=== PATIENT | male | born 1975 | race Caucasian/White ===

== ENCOUNTER 2020-08-27 08:33 | Outpatient (CLI) | payer OTHER, SELFPAY ==
--- NOTE | ~2020-08-27 | US_ITS ---
EXAMINATION: US abdomen complete EXAM DATE: 08/27/2020 09:18 INDICATION: R74.8 - Abnormal liver enzymes. TECHNIQUE: Multiple grayscale and Doppler images of the complete abdomen were obtained (by a technolo gist who performed the scan) and subsequently reviewed. Comparison is made to prior examination from 05/09/2019. FINDINGS: The abdominal aorta is normal in caliber. Visualized portion IVC is patent. The pancreatic head a nd body are normal in appearance. The pancreatic tail is not visualized. There is echogenic liver parenchyma, hepatic steatosis. There are no focal liver lesions identified. There is no evidence of intrahepatic biliary duct dilation. Portal venous flow was seen in the he patopedal, normal direction and has normal Doppler waveform. Common bile duct measures 5 mm, which is normal. The gallbladder fossa is unremarkable. Right kidney: There is normal contour and echogenicity. It measures 11.0 x 5.2 x 4.3 centimeters. There are no focal renal lesions identified. There is no hydronephrosis. Left kidney: There is normal contour and echogenicity. It measures 11.1 x 5.0 x 5.9 centimeters. T here are no focal renal lesions identified. There is no hydronephrosis. The spleen measures 11.3 centimeters and is morphologically normal. IMPRESSION: 1. Hepatic steatosis. Reviewed, dictated and finalized at location A. TIATOR IMPRESSION: 1. Hepatic steatosis.
== END 2020-08-27 08:34 | disposition home or self-care (01) ==
PROVIDERS: Family Provider Family Medicine; PCP Family Medicine; Visit Provider Physician Assistant Medical
DX: R74.8 Abnormal levels of other serum enzymes (principal); K76.0 Fatty (change of) liver, not elsewhere classified
CPT/HCPCS: 76700

== ENCOUNTER → 2022-03-01 11:43 | Outpatient (CLI) | payer OTHER, SELFPAY ==
--- NOTE | ~2022-03-01 | US_ITS ---
US abdomen complete EXAMINATION: US Abdomen Complete INDICATION: Abdomen pain. PROCEDURE: Realtime High Resolution abdomen ultrasound. COMPARISON: No prior studies for comparison FINDINGS: Gallbladder is surgically absent. Common bile duct measures 4 mm. Liver echotexture is increased, consistent with fatty infiltration.. Pancreas within normal limits. Pancreatic tail is obscured by bowel gas. Spleen is unremarkeable. Renal echotexture is within norm al limits bilaterally without hydronephrosis, contour deforming mass or renal stone. Right kidney bobby sures cm. Left kidney measures cm. Visualized aspects of the aorta and IVC are within normal limits. Portal vein is patent. No sonograph ic Noriega's sign indicated by the technologist. IMPRESSION: 1: Hepatic steatosis. Reviewed, dictated and finalized at location A. IMPRESSION: 1: Hepatic steatosis.
== END ==
PROVIDERS: PCP Family Medicine; Visit Provider Nurse Practitioner Family
DX: R10.12 Left upper quadrant pain (principal); K76.0 Fatty (change of) liver, not elsewhere classified
CPT/HCPCS: 76700

== ENCOUNTER 2022-03-30 09:00 | Outpatient (NON) | payer OTHER, SELFPAY | END 2022-03-30 09:01 | disposition home or self-care (01) | PROVIDERS: PCP Family Medicine; Visit Provider Internal Medicine Gastroenterology | DX: R10.9 Unspecified abdominal pain (principal) | CPT/HCPCS: 88305; 88342 ==

== ENCOUNTER 2022-03-30 12:20 | Day surgery (SDC) | payer OTHER, SELFPAY ==
[2022-03-23 08:47] VITALS: BMI 32.5
[2022-03-23 09:35] VITALS: BMI 71.6
--- NOTE | 2022-03-29 21:02 | WPDANESEPPF ---
Anes - Initial Pre Proc Eval Procedure: Operation Date: 03/30/22 14:00 Proposed Procedures p Esophagogastroduodenoscopy - Siddharth Nayak MD Date/Time: 03/29/22 21:02 Surgeon: Siddharth Nayak MD Pre Op Diagnosis: Upper Abdominal Pain Patient Data Age: 46 Gender: M Height: 1.75 m Weight: 220 kg Allergies Allergy/AdvReac Type Severity Reaction Status Date / Time No Known Allergies Allergy Verified 03/30/22 12:45 Home Medications Medication Instructions Recorded Confirmed Type famotidine 20 mg tablet 20 mg PO DAILY 07/21/20 03/30/22 History cholestyramine (with sugar) 4 gram See Rx Instructions .Route 02/03/21 03/30/22 Rx oral powder .COMPLEX #1,134 grams omeprazole 40 mg capsule,delayed 40 mg PO DAILY #90 caps 05/10/21 03/30/22 Rx release amitriptyline 25 mg tablet 50 mg PO ONCE #180 tabs 03/12/22 03/30/22 Rx Patient hx anesthesia problems: none Family hx anesthesia problems: none Results Review: All pre-operative results and documents have been reviewed as part of the pre-operative evaluation. [facility] Past Medical History Medical History Adult BMI 32.0-32.9 kg/sq m BMI 31.0-31.9,adult Chronic diarrhea Diarrhea GERD (gastroesophageal reflux disease) Hepatitis, acute type B Family History Family History Grandparent Family history of coronary artery disease Diabetes mellitus Father Family history of Alzheimer's disease Social History Social History Smoking status: Never smoker Second hand tobacco smoke exposure: No Alcohol intake: current Alcohol use details: rarely - a few times a year Substance use type: does not use Living arrangements: alone Spiritual care concerns: No Anes - Eval Final PreProcedure Day of Procedure 03/29/22 21:02 Patient weight: obese Heart: regular rate and rhythm Lungs: clear to auscultation Airway: Mallampati scale class II Neurological: alert and oriented Last oral intake: >/= 8 hours ASA classification: III Emergent: no Anesthetic plan: proceed Anesthesia type and monitoring: general GIVS and standard monitoring Results Review: All pre-operative results and documents have been reviewed as part of the pre-operative evaluation. Informed Consent: The patient's anesthetic plan and its attendant risks and benefits were discussed with the patient/family/POA. Questions were solicited and answers provided to the satisfaction of the patient/family/POA.
[2022-03-30 12:40] VITALS: BP 131/100; PULSE 90; RESP 20; TEMP 36.8; O2SAT 98
[2022-03-30 12:49] VITALS: BMI 32.5
[2022-03-30] MEDS: LACTATED RINGERS 1,000 ML 150 ML IV CONT (12:55)
--- NOTE | 2022-03-30 13:55 | P.PNAN_ITS ---
Anes - Initial Pre Proc Eval Procedure: Operation Date: 03/30/22 14:00 Proposed Procedures p Esophagogastroduodenoscopy - Siddharth Nayak MD Date/Time: 03/30/22 13:55 Surgeon: Siddharth Nayak MD Pre Op Diagnosis: Upper Abdominal Pain Patient Data Age: 46 Gender: M Height: 1.75 m Weight: 99.8 kg Last Vital Signs Temp 36.8 C 03/30/22 12:40 Pulse 90 03/30/22 12:40 Resp 20 03/30/22 12:40 BP 131/100 H 03/30/22 12:40 Pulse Ox 98 03/30/22 12:40 O2 Del Method Room Air 03/30/22 12:40 Allergies Allergy/AdvReac Type Severity Reaction Status Date / Time No Known Allergies Allergy Verified 03/30/22 12:45 Home Medications Medication Instructions Recorded Confirmed Type famotidine 20 mg tablet 20 mg PO DAILY 07/21/20 03/30/22 History cholestyramine (with sugar) 4 gram See Rx Instructions .Route 02/03/21 03/30/22 Rx oral powder .COMPLEX #1,134 grams omeprazole 40 mg capsule,delayed 40 mg PO DAILY #90 caps 05/10/21 03/30/22 Rx release amitriptyline 25 mg tablet 50 mg PO ONCE #180 tabs 03/12/22 03/30/22 Rx Patient hx anesthesia problems: none Family hx anesthesia problems: none Results Review: All pre-operative results and documents have been reviewed as part of the pre- operative evaluation. [facility] Past Medical History Medical History Adult BMI 32.0-32.9 kg/sq m BMI 31.0-31.9,adult Chronic diarrhea Diarrhea GERD (gastroesophageal reflux disease) Hepatitis, acute type B Family History Family History Grandparent Family history of coronary artery disease Diabetes mellitus Father Family history of Alzheimer's disease Social History Social History Smoking status: Never smoker Second hand tobacco smoke exposure: No Alcohol intake: current Alcohol use details: rarely - a few times a year Substance use type: does not use Living arrangements: alone Spiritual care concerns: No Anes - Eval Final PreProcedure Day of Procedure 03/30/22 13:55 Patient weight: obese Heart: regular rate and rhythm Lungs: clear to auscultation Airway: Mallampati scale class III Neurological: alert and oriented Last oral intake: >/= 8 hours ASA classification: II Emergent: no Anesthetic plan: proceed Anesthesia type and monitoring: general GIVS and standard monitoring Results Review: All pre-operative results and documents have been reviewed as part of the pre- operative evaluation. Informed Consent: The patient's anesthetic plan and its attendant risks and benefits were discusse d with the patient/family/POA. Questions were solicited and answers provided to the satisfaction of the patient/family/POA.
--- NOTE | 2022-03-30 14:09 | WPDHPUPDATE1 ---
History and Physical Update Update Date/Time: 03/30/22 14:09 History and Physical has been reviewed, including an updated exam of the patient. There are NO changes in the patient's condition. Risks, benefits, and alternatives have been discussed and questions answered. Patient agrees to proceed with procedure.
[2022-03-30 14:24] VITALS: BP 123/89; PULSE 92; RESP 18; O2SAT 96
[2022-03-30 14:34] VITALS: BP 135/83; PULSE 89; RESP 20; O2SAT 97
--- NOTE | 2022-03-30 14:34 | WPDANESPN ---
Anes - Prog Note Post-Op Date/Time: 03/30/22 14:34 Cardiovascular status: normal Respiratory status: normal Airway patency: baseline Mental status: baseline Post-Op hydration status: normal Vital Signs: Last Vital Signs Temp 36.8 C 03/30/22 12:40 Pulse 92 03/30/22 14:24 Resp 18 03/30/22 14:24 BP 123/89 03/30/22 14:24 Pulse Ox 96 03/30/22 14:24 O2 Del Method Room Air 03/30/22 14:24 Pain Score (VAS): 0 I/O: Intake & Output 03/29/22 03/30/22 03/30/22 23:59 07:59 15:59 Intake Total 200 Balance 200 Patient Feedback: Patient satisfied with anesthetic care.
[2022-03-30 14:44] VITALS: BP 126/85; PULSE 81; RESP 20; O2SAT 98
== END 2022-03-30 14:56 | disposition home or self-care (01) ==
PROVIDERS: PCP Family Medicine; Visit Provider Internal Medicine Gastroenterology
PROC: 0DJ08ZZ Inspection of Upper Intestinal Tract, Via Natural or Artificial Opening Endoscopic (ICD-10-PCS; CPT 43235; principal; 2022-03-30 14:00)
DX: R10.9 Unspecified abdominal pain (principal)
CPT/HCPCS: 43239

== ENCOUNTER 2022-05-04 14:51 | Outpatient (CLI) | payer OTHER, SELFPAY ==
--- NOTE | ~2022-05-04 | US_ITS ---
EXAMINATION:US venous doppler LE BI INDICATION:Right leg pain TECHNIQUE: Multiple grayscale, color flow and Doppler images of the right and left lower extremity de ep venous systems were obtained and reviewed. COMPARISON:No prior studies for comparison. FINDINGS: The common femoral, superficial femoral and popliteal veins demonstrate normal respiratory variation, augmentation and compressibility. Color flow is also seen within the posterior tibial, pe roneal, greater saphenous and profunda veins. IMPRESSION: 1: No lower extremity deep venous thrombosis. Reviewed, dictated and finalized at location B.
== END 2022-05-04 14:52 | disposition home or self-care (01) ==
LOC: ANHIMG 14:54
PROVIDERS: PCP Family Medicine; Visit Provider Physician Assistant Medical
DX: M79.604 Pain in right leg (principal)
CPT/HCPCS: 93970

== ENCOUNTER 2022-07-11 07:24 | Outpatient (CLI) | payer OTHER, SELFPAY ==
--- NOTE | ~2022-07-11 | CT_ITS ---
EXAMINATION: CT abdomen pelvis w con INDICATION: Left upper quadrant pain TECHNIQUE: Computed tomographic images of the abdomen and pelvis were obtained after the administrati on of 100 cc of Omnipaque 350 intravenous contrast. The dose-length product (DLP) was 905.29 mGy-cm. Automated exposure control and iterative reconstruction technique were employed. COMPARISON: 08/17/2018 FINDINGS: The lung bases are clear. The heart size is normal. The gallbladder is surgically absent. T he liver is diffusely low in attenuation when compared with the spleen, consistent with hepatic steat osis. The spleen, pancreas, and adrenal glands are normal. The kidneys are unremarkable. The appendix is normal. No pathologically enlarged abdominal or pelvic lymph nodes are identified. There is no fr ee intraperitoneal gas or evidence of bowel obstruction. There is mild lumbar spondylosis. IMPRESSION: 1. No CT correlate for the patient's symptoms. Reviewed, dictated and finalized at location A. NESS LIAISON MANAGER
== END 2022-07-11 07:25 | disposition home or self-care (01) ==
PROVIDERS: PCP Family Medicine; Visit Provider Nurse Practitioner Family
DX: R10.12 Left upper quadrant pain (principal)
CPT/HCPCS: 74177; Q9967

== ENCOUNTER 2023-05-09 09:36 | Outpatient (CLI) | payer OTHER, SELFPAY ==
--- NOTE | 2023-05-19 19:47 | WPDHOMESLEEP ---
Sleep Study - Home Unattended Date of Study: 05/09/23 Ordering Provider: Dhruv Murillo MD Interpreting Provider: Ana Lilia Amaya MD Home Sleep Study Type: Watch PAT Height: 1.78 m Weight: 95.254 kg Body Mass Index: 30.1 Neck Circumference (inches): 17 [place]: 2 Reason for Sleep Study Non-restorative sleep, does not awaken feeling refreshed, frequent loud snoring, occasional heartburn at night Sleep History Jackie Mosher is a 47-year-old man GERD, allergies, and stomach problems. He has poor quality sleep. He never awakens from sleep short of breath. He rarely wakes at night with heartburn, belching or coughing.??He constantly snores, constantly snores loudly enough that others complain. He constantly has trouble sleeping with a cold; never wakes up gasping for breath during the night. He occasionally has breathing problems at night. He frequently sweats excessively at night. Hhe never notices her heart pounding or beating irregularly during the night. He never falls asleep during the day. He never falls asleep involuntarily, never falls asleep while driving. He never experiences loss of muscle tone with strong emotion. He never feels paralyzed on waking or falling asleep. He frequently experiences vivid dreams upon waking or falling asleep. He never feels afraid of going to sleep. He rarely has nightmares. He occasionally recalls his dreams. He frequently has thoughts racing through his mind. He occasionally feels sad or depressed. He rarely feels anxiety. He rarely notices parts of her body jerk. He never kicks during the night. He rarely feels crawling or aching feelings in his legs. He rarely feels leg pain at night. He rarely has morning jaw pain, and frequently grinds her teeth at night. He rarely feels bothered by pain during the day, rarely awakened by pain during the night. He rarely wakes up feeling stiff in the morning, rarely wakes up feeling sore or achy in the morning. He rarely awakens with pain in his neck, spine, or joints. Normal bedtime is 10:00 p.m., falling asleep within 5 minutes but sometimes taking up to 1 hour. He wakes up 4-5 times during the night. He reports getting between 6-7 hours of sleep per night. When he wakes at night, he looks at the clock and tries to return to sleep. His awakenings occur soon after going to sleep, in the middle of the night and in the die operator hours. On average, he stays awake up to 10 minutes trying to return to sleep. His wake time is 7:00 a.m. He does not take naps. He is drowsy for 2 hours after waking. He feels better in the evening compared to other times of day. Habits:??Tobacco:Never Caffeine:not routinely, only if eating out at a restaurant. Alcohol:no Recreational substances: THC/CBD [facility] Past Medical History Medical History (Updated 05/19/23 @ 19:59 by Ana Lilia Amaya MD) Adult BMI 32.0-32.9 kg/sq m BMI 30.0-30.9,adult BMI 31.0-31.9,adult Chronic diarrhea Diarrhea GERD (gastroesophageal reflux disease) Hepatitis, acute type B Surgical History Surgical History (Updated 05/19/23 @ 20:17 by Ana Lilia Amaya MD) S/P cholecystectomy S/P tonsillectomy Family History Family History Grandparent Family history of coronary artery disease Diabetes mellitus Father Family history of Alzheimer's disease Mother No problems noted. Social History Social History Smoking status: Never smoker Second hand tobacco smoke exposure: No Alcohol intake: current Alcohol use details: rarely - a few times a year Substance use: current Substance use type: marijuana Other substance usage details: gummies-cbd Lack of Transportation: No Lack of Food: Never True Current Housing: I Have Housing Concerned About Future Housing: No Difficulty Paying Gas/Electric Bills: No Difficulty Paying for Meds:
[2023-05-19 20:08] VITALS: BMI 30.1
== END 2023-05-10 12:52 | disposition home or self-care (01) ==
LOC: ANHCSM 09:36
PROVIDERS: PCP Family Medicine; Visit Provider Family Medicine
DX: G47.30 Sleep apnea, unspecified (principal); G47.33 Obstructive sleep apnea (adult) (pediatric)
CPT/HCPCS: 95800

== ENCOUNTER 2023-06-12 12:27 | Emergency (ER) | payer OTHER, SELFPAY ==
--- NOTE | ~2023-06-12 | XR_ITS ---
EXAMINATION: XR chest 2V DATE: 06/12/2023 12:56 INDICATION: Left chest pain. TECHNIQUE: Frontal and lateral views of the chest were obtained. COMPARISON: CT abdomen and pelvis 07/11/2022 FINDINGS: There is mild scarring at the lung apices. There is no pneumonia, pleural effusion, or pneu mothorax. The heart size is normal. Surgical clips in the right upper quadrant are likely from cholec ystectomy. IMPRESSION: 1. Mild scarring at the lung apices. Reviewed, dictated and finalized at location A. TIONAL TECHNICAL EDUCATION DIRECTOR
--- NOTE | 2023-06-12 12:29 | ECG_ITS ---
Measurements Intervals [place] Rate: 79 P: 9 W[place]: 152 QRS: 44 QRSD: 98 T: 30 QT: 354 QTc: 408 Interpretive Statements SINUS RHYTHM BASELINE ARTIFACT- V5 NORMAL ECG NO PREVIOUS ECG AVAILABLE FOR COMPARISON Electronically Signed On 06-12-2023 12:55:53 CORPORATE EVENTS DIRECTOR by Perry Medley D.O.
[2023-06-12 12:34] VITALS: BP 152/101; PULSE 87; RESP 16; TEMP 36.7; O2SAT 100
[2023-06-12 12:38] VITALS: PULSE 82; O2SAT 100
[2023-06-12] MEDS: ASPIRIN 81 MG CHEWABLE TABLET 324 MG PO (12:50)
[2023-06-12 12:52] LABS: Basophils Percent Auto 0.4 % (0.2-1.2); Eosinophils Absolute Auto 0.1 K/mm3 (0-0.3); Hematocrit 46.6 % (42.0-52.0); Hemoglobin 16.4 g/dL (14.0-18.0); Immature Granulocyte Absolute 0.01 K/mm3 (0.00-0.031); Immature Granulocyte Percent A 0.1 % (0-0.5); Lymphocytes Absolute Auto 2.79 K/mm3 (0.9-3.2); Lymphocytes Percent Auto 39.4 % (18.3-44.2); Mean Corpuscular HGB Conc 35.2 g/dl (32-36); Mean Corpuscular Hemoglobin 29.4 pg (26-34); Mean Corpuscular Volume 83.7 fl (80-100); Mean Platelet Volume 9.5 fl (7.4-10.4); Monocytes Absolute Auto 0.5 K/mm3 (0.1-0.6); Monocytes Percent Auto 7.5 % (2.6-8.5); Neutrophils Absolute Auto 3.6 K/mm3 (1.3-6.7); Neutrophils Percent Auto 50.6 % (45.5-73.1); Platelet Count Result 171 k/mm3 (150-375); Red Blood Count 5.57 M/mm3 (4.6-6.20); White Blood Count 7.1 K/mm3 (4.5-10.0)
[2023-06-12 13:02] LABS: Alanine Aminotransferase 29 U/L (6-50); Albumin Level 4.6 g/dL (3.5-5.1); Alkaline Phosphatase 69 U/L (38-126); Anion Gap 7 mmol/L (8-16); Aspartate Amino Transferase 26 U/L (17-59); Bilirubin,Total 1.8 mg/dL (0.2-1.3); Blood Urea Nitrogen 16 mg/dL (9-20); Carbon Dioxide 29 mmol/L (22-30); Chloride 102 mmol/L (98-107); Estimated CRCL calculation 103 ml/min; Estimated Glomerular Filt Rate > 60; Glucose 96 mg/dL (65-110); Lipase 89 U/L (23-300); Sodium 138 mmol/L (137-145)
[2023-06-12 13:07] LABS: INR 0.9; Prothrombin Time 12.8 Seconds (11.1-14.7)
[2023-06-12 13:08] LABS: Partial Thromboplastin Time 30.3 SECONDS (22.3-36.8)
[2023-06-12 13:13] LABS: Troponin I < 0.012 ng/mL (0.000-0.034)
[2023-06-12 14:48] VITALS: BP 141/89; PULSE 96; RESP 18; O2SAT 96
[2023-06-12 16:18] LABS: Troponin I < 0.012 ng/mL (0.000-0.034)
--- NOTE | 2023-06-12 16:32 | ED.CHESTPAIN ---
HPI - Chest Pain General Chief Complaint: Chest Pain Stated Complaint: cp Time Seen by Provider: 06/12/23 13:41 History of Present Illness HPI narrative: Patient is a 47-year-old male who presents ER with chest pain for the last 3 days. Intermittent. It lasts for approximately 10 seconds at a time. It is pressure in the description. Reports today had some mild discomfort beneath his axilla on the left side. It is also moved over to the right side. Is not particular modified by eating or drinking or activity. Occurs spontaneously. No history of heart disease. Denies fevers or chills or sweats. No runny nose or sore throat or productive cough. No alleviating factors that he is found. Related Data Home Medications Medication Instructions Recorded Confirmed famotidine 20 mg tablet 20 mg PO DAILY 07/21/20 04/04/23 Allergies Allergy/AdvReac Type Severity Reaction Status Date / Time No Known Allergies Allergy Verified 06/12/23 12:42 Review of Systems Review of Systems: All systems reviewed & are unremarkable except as noted in HPI and below Constitutional: Constitutional: Denies chills, Denies fatigue and Denies fever(s) Cardiovascular: Cardiovascular: Reports chest pain, Denies rapid heart rate and Denies radiating jaw, neck or arm pain Respiratory: Respiratory: Reports no additional respiratory complaints Gastrointestinal: Gastrointestinal: Reports no additional gastrointestinal complaints Musculoskeletal: Musculoskeletal: Reports no additional musculoskeletal complaints Integumentary/Breasts: Skin/Breast: Reports system reviewed and no additional complaints, except as docu [facility] Past Medical History Medical History (Updated 06/12/23 @ 16:36 by Edy Foreman MD) Adult BMI 32.0-32.9 kg/sq m BMI 30.0-30.9,adult BMI 31.0-31.9,adult Chronic diarrhea Diarrhea GERD (gastroesophageal reflux disease) Hepatitis, acute type B Surgical History Surgical History (Updated 05/19/23 @ 20:17 by Ana Lilia Amaya MD) S/P cholecystectomy S/P tonsillectomy Family History Family History Grandparent Family history of coronary artery disease Diabetes mellitus Father Family history of Alzheimer's disease Mother No problems noted. Social History Social History Smoking status: Never smoker Second hand tobacco smoke exposure: No Alcohol intake: current Alcohol use details: rarely - a few times a year Substance use: current Substance use type: marijuana Other substance usage details: gummies-cbd Lack of Transportation: No Lack of Food: Never True Current Housing: I Have Housing Concerned About Future Housing: No Difficulty Paying Gas/Electric Bills: No Difficulty Paying for Meds: No Currently Unemployed: No Education: Bachelor's Degree Difficulty w/ Childcare or Family Care: No Living arrangements: alone Occupation/Education: occupation 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 HEAD: Normocephalic, atraumatic. ENT: Mucous membranes moist. CHEST: Clear to auscultation. No respiratory distress. No reproducible chest wall pain. HEART: Regular rate and rhythm. Normal peripheral pulses. ABDOMEN: Soft, nontender, nondistended. EXTREMITIES: Normal range of motion. No edema. SKIN: Warm, dry, no rash. NEURO: Alert and oriented x3. PSYCH: Normal mood and affect. Course Course Emergency Course: Patient resting comfortably. Informed results. Troponin negative x2. Patient felt to be appropriate for discharge home and follow-up with PCP. Recommend scheduled anti-inflammatory medications. Vital Signs Vital signs: Vital Signs Temperature 98.1 F
[2023-06-12 16:46] VITALS: BP 137/93; PULSE 92; RESP 16; O2SAT 97
== END 2023-06-12 16:48 | disposition home or self-care (01) ==
PROVIDERS: Emergency Medicine; Emergency Provider Emergency Medicine; PCP Family Medicine
DX: R07.89 Other chest pain (principal); K21.9 Gastro-esophageal reflux disease without esophagitis; Z90.49 Acquired absence of other specified parts of digestive tract
CPT/HCPCS: 36415; 71046; 80053; 83690; 84484; 85025; 85610; 85730; 93005; 99284; A9270

== ENCOUNTER 2023-06-18 20:00 | Outpatient (CLI) | payer OTHER, SELFPAY ==
[2023-07-10 10:06] VITALS: BMI 30.1
--- NOTE | 2023-07-10 10:06 | WPDSLEEPSTUD ---
Sleep Study Date of Study: 06/18/23 Ordering Provider: Dhruv Murillo MD Interpreting Physician: Hoa Perez, Sleep Study Type: CPAP Titration Height: 1.78 m Weight: 95.254 kg Body Mass Index: 30.1 Neck Circumference (inches): 17 [place]: 2 Reason for Sleep Study The patient had a [facility] home sleep test on 05/09/2023 that showed severe obstructive sleep apnea, AHI is 58.5, desaturation to 71% . Sleep History Jackie Mosher is a 47-year-old man GERD, allergies, and stomach problems.? He has poor quality sleep.? He never awakens from sleep short of breath.? He rarely wakes at night with heartburn, belching or coughing.??He constantly snores, constantly snores loudly enough that others complain. He constantly has trouble sleeping with a cold; never wakes up gasping for breath during the night. He occasionally has breathing problems at night. He frequently sweats excessively at night. Mitule never notices her heart pounding or beating irregularly during the night.? He never falls asleep during the day.? He never falls asleep involuntarily, never falls asleep while driving. He never experiences loss of muscle tone with strong emotion.? He never feels paralyzed on waking or falling asleep.? He frequently experiences vivid dreams upon waking or falling asleep. He never feels afraid of going to sleep. He rarely has nightmares.? He occasionally recalls his dreams.? He frequently has thoughts racing through his mind. He occasionally feels sad or depressed. He rarely feels anxiety. He rarely notices parts of her body jerk. He never kicks during the night.? He rarely feels crawling or aching feelings in his legs.? He rarely feels leg pain at night.? He rarely has morning jaw pain, and? frequently grinds her teeth at night.? He rarely feels bothered by pain during the day, rarely awakened by pain during the night.? He rarely wakes up feeling stiff in the morning, rarely wakes up feeling sore or achy in the morning.? He rarely awakens with pain in his neck, spine, or joints. Normal bedtime is? 10:00 p.m., falling asleep? within 5 minutes but sometimes taking up to 1 hour.? He wakes up 4-5 times during the night.? He reports getting between 6-7 hours of sleep per night.? When he wakes at night, he looks at the clock and tries to return to sleep.? 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 On average, he stays awake up to 10 minutes trying to return to sleep.? His wake time is 7:00 a.m.? He does not take naps. He is drowsy for 2 hours after waking.? He feels better in the evening compared to other times of day. Habits:??Tobacco:Never? ? ? Caffeine:not routinely, only if eating out at a restaurant. ? Alcohol:no? ? ? Recreational substances: THC/CBD [facility] Past Medical History Medical History Adult BMI 32.0-32.9 kg/sq m BMI 30.0-30.9,adult BMI 31.0-31.9,adult Chronic diarrhea Diarrhea GERD (gastroesophageal reflux disease) Hepatitis, acute type B Surgical History Surgical History S/P cholecystectomy S/P tonsillectomy Family History Family History Grandparent Family history of coronary artery disease Diabetes mellitus Father Family history of Alzheimer's disease Mother No problems noted. Social History Social History Smoking status: Never smoker Second hand tobacco smoke exposure: No Alcohol intake: current Alcohol use details: rarely - a few times a year Substance use: current Substance use type: marijuana Other substance usage details: gummies-cbd Lack of Transportation: No Lack of Food: Never True Current Housing: I Have Housing Concerned About Future Housing: No Difficulty Paying Gas/Electric Bills: No Difficulty
== END 2023-06-19 07:05 | disposition home or self-care (01) ==
LOC: ANHCSM 06-19 07:03
PROVIDERS: PCP Family Medicine; Visit Provider Family Medicine
DX: G47.33 Obstructive sleep apnea (adult) (pediatric) (principal)
CPT/HCPCS: 95811

== ENCOUNTER 2023-07-03 08:50 | Outpatient (CLI) | payer OTHER, SELFPAY ==
--- NOTE | 2023-07-03 09:09 | EST_ITS ---
Patient Info Name: Jackie Mosher Age: 47 years : 1975 Gender: Male Ht: 70 in Wt: 210 lbs BSA: 2.19 m2 HR: 97 bpm BP: 185 / 85 mmHg Heart Rhythm: Right Bundle Branch Block Exam Date: 07/03/2023 9:20 AM Exam Location: Echo Lab Patient Status: Outpatient Admit Date: 07/03/2023 Staff Ordering Physician: Claudia Lopez Attending Provider: Claudia Lopez Exercise Technologist: Oxana Evans CT Exercise Physician: Perry Medley DO Exam Type: CA stress test treadmill Study Info Indications R07.89 - Other chest pain A treadmill exercise stress test was performed. Summary 1. 1. Negative [place] exercise stress test for ischemic ST changes by ECG criteria. 2. 2. Reduced functional capacity, achieving 8.9 METs of workload. 3. 3. Appropriate HR response to exercise. 4. 4. Appropriate HR recovery at 1 minute post exercise. 5. 5. No imaging with stress testing. 6. 6. Patient informed of the above results. Protocol: [place] Stress ECG Details Stage: REST Duration (min): 1 min : 9 sec Speed (mph): 0.0 Grade (%): 0 HR (bpm): 99 SBP (mmHg): 128 DBP (mmHg): 85 METS: --- Stage: REST Duration (min): 5 min : 49 sec Speed (mph): 0.0 Grade (%): 0 HR (bpm): 97 SBP (mmHg): 128 DBP (mmHg): 85 METS: --- Stage: STAGE 1 Duration (min): 1 min : 0 sec Speed (mph): 1.7 Grade (%): 10 HR (bpm): 113 SBP (mmHg): 128 DBP (mmHg): 85 METS: --- Stage: STAGE 1 Duration (min): 2 min : 0 sec Speed (mph): 1.7 Grade (%): 10 HR (bpm): 121 SBP (mmHg): 128 DBP (mmHg): 85 METS: --- Stage: STAGE 1 Duration (min): 3 min : 0 sec Speed (mph): 1.7 Grade (%): 10 HR (bpm): 125 SBP (mmHg): 118 DBP (mmHg): 73 METS: --- Stage: STAGE 2 Duration (min): 1 min : 0 sec Speed (mph): 2.5 Grade (%): 12 HR (bpm): 135 SBP (mmHg): 118 DBP (mmHg): 73 METS: --- Stage: STAGE 2 Duration (min): 2 min : 0 sec Speed (mph): 2.5 Grade (%): 12 HR (bpm): 140 SBP (mmHg): 146 DBP (mmHg): 71 METS: --- Stage: STAGE 2 Duration (min): 3 min : 0 sec Speed (mph): 2.5 Grade (%): 12 HR (bpm): 146 SBP (mmHg): 146 DBP (mmHg): 71 METS: --- Stage: STAGE 3 Duration (min): 1 min : 0 sec Speed (mph): 3.4 Grade (%): 14 HR (bpm): 149 SBP (mmHg): 143 DBP (mmHg): 62 METS: --- Stage: STAGE 3 Duration (min): 1 min : 0 sec Speed (mph): 3.4 Grade (%): 14 HR (bpm): 149 SBP (mmHg): 143 DBP (mmHg): 62 METS: --- Stage: RECOVERY Duration (min): 0 min : 59 sec Speed (mph): 0.0 Grade (%): 0 HR (bpm): 135 SBP (mmHg): 143 DBP (mmHg): 62 METS: --- Stage: RECOVERY Duration (min): 1 min : 59 sec Speed (mph): 0.0 Grade (%): 0 HR (bpm): 122 SBP (mmHg): 143 DBP (mmHg): 62 METS: --- Stage: RECOVERY Duration (min): 2 min : 47 sec Speed (mph): 0.0 Grade (%): 0 HR (bpm): 115 SBP (mmHg): 177
== END 2023-07-03 08:51 | disposition home or self-care (01) ==
LOC: ANHCARD 08:50
PROVIDERS: PCP Family Medicine; Visit Provider Nurse Practitioner Family
DX: R07.89 Other chest pain (principal)
CPT/HCPCS: 93017